=== PATIENT | female | born 1955 | race Caucasian/White ===

== ENCOUNTER 2020-03-06 07:18 | Day surgery (SDC) | payer MEDICARE ==
[~2020-03-06] VITALS: Ht 157.5 cm; Wt 59.2 kg
[~2020-03-06 07:18] MED LIST: BUPR150T2 PO; DOCU100 PO; Miralax17 GM PO; Norco 5-325 Ta1 EACH PO; PARO20 PO; PROAIR DIGIHAL90 MCG; Zofran Odt4 MG SL
== END 2020-03-06 09:14 | disposition home or self-care (01) ==
LOC: ORSCSDS 07:18
PROVIDERS: Internal Medicine Gastroenterology
PROC: 0DBP8ZX Excision of Rectum, Via Natural or Artificial Opening Endoscopic, Diagnostic (ICD-10-PCS; principal; 2020-03-06 08:30)
DX: Z12.11 Encounter for screening for malignant neoplasm of colon (principal); D12.8 Benign neoplasm of rectum; K64.8 Other hemorrhoids; K64.4 Residual hemorrhoidal skin tags; E78.00 Pure hypercholesterolemia, unspecified; F32.9 Major depressive disorder, single episode, unspecified; Z79.899 Other long term (current) drug therapy
CPT/HCPCS: 88305; J0461; J2405; J2704; J7120

== ENCOUNTER → 2022-04-18 | Outpatient (CLI) | payer OTHER | LOC: PLD 07:25 → LAB SHORT 07:25 → LAB 07:25 | DX: Z87.42 Personal history of other diseases of the female genital tract (principal) | CPT/HCPCS: 88305 ==